=== PATIENT | female | born 1940 | race Caucasian/White ===

== ENCOUNTER 2018-09-14 08:21 | Inpatient (IN) | payer MEDICARE ==
[~2018-09-14] VITALS: Ht 165.1 cm; Wt 87.6 kg
--- NOTE | 2018-09-14 08:49 | NUR ---
PT SEEN AT AND PRESCRIBED DOXY, TESSALON, AND INH FOR POSS PNM. PT RPTS NO IMPROVEMENT AND FEELING OF HEART RACING INTERMITTANTLY. MARGARITO DUONG AT BEDSIDE, ASSESSMENT, POC DISCUSSED AND ORDERS REC'D.
[2018-09-14] MEDS ORDERED: ASPIRIN 81 MG TABLET CHEW PO ONE (09:00)
[2018-09-14] MEDS ORDERED: SODIUM CHLORIDE FLUSH 10ML SYR IVF ONE (09:00)
[2018-09-14] MEDS ORDERED: DILTIAZEM 5 MG/ML, 5ML IVPush STA (09:01)
[2018-09-14] MEDS ORDERED: DILTIAZEM 5 MG/ML, 5ML ONE (09:07)
[2018-09-14] MEDS: DILTIAZEM 125 MG in DEXTROSE 5% 100 ML IV SCH ×2 (09:18→19:38)
[2018-09-14] MEDS ORDERED: ASPIRIN 81 MG TABLET EC ONE (09:24)
[2018-09-14 09:27] LABS: BASOPHILS # (AUTO) 0.04 x10^3/uL (0-0.1); BASOPHILS % (AUTO) 1 % (0-1); EOSINOPHILS # (AUTO) 0.05 x10^3/uL (0-0.4); EOSINOPHILS % (AUTO) 1 % (1-7); LYMPHOCYTES # (AUTO) 1.08 x10^3/uL (1-3.4); LYMPHOCYTES % (AUTO) 13 % (22-44); MD NO; MEAN CORPUSCULAR HGB CONC 33.7 g/dL (32.4-35.8); MEAN CORPUSCULAR VOLUME 100.8 fL (80-100); MEAN PLATELET VOLUME 7.3 fL (7.4-10.4); MONOCYTES # (AUTO) 0.83 x10^3/uL (0.2-0.8); MONOCYTES % (AUTO) 10 % (2-9); NEUTROPHILS # (AUTO) 6.11 x10^3/uL (1.8-6.8); NEUTROPHILS % (AUTO) 75 % (42-75); PLATELET COUNT 357 x10^3/uL (130-400); RED BLOOD COUNT 4.56 x10^6/uL (3.82-5.3); RED CELL DISTRIBUTION WIDTH 13.8 % (9.6-15.2)
--- NOTE | 2018-09-14 09:27 | NUR ---
PT MED NOTED WITH DILTIZEM WITH EFFECT. DILT GTT STARTED AT 10MG/HR AND INFUSING W/O DIFFICULTY. CALL LIGHT W/I REACH, SPOUSE AT BEDSIDE.
[2018-09-14] MEDS ORDERED: DILTIAZEM 5 MG/ML, 5ML IVPush ONE (09:30)
--- NOTE | 2018-09-14 09:36 | NUR ---
PT OOB AND AMBULATED TO BATHROOM UPRIGHT STEADY GAIT. INCREASED SOB WITH ACTIVITY. PT RTD TO ROOM W/O INCIDENT. CALL LIGHT W/I REACH, VSS
[2018-09-14 09:40] LABS: RAPID INFLUENZA A Negative (Negative); RAPID INFLUENZA B Negative (Negative)
[2018-09-14 09:42] LABS: ALBUMIN 3.1 g/dL (3.4-5.0); ANION GAP 6 mmol/L (5-15); CALCIUM 8.7 mg/dL (8.5-10.1); CHLORIDE 104 mmol/L (98-107)
[2018-09-14 09:43] LABS: INTERNATIONAL NORMALIZED RATIO 1.09 (0.93-1.1); PROTHROMBIN TIME 11.5 Seconds (9.6-11.5)
[2018-09-14 09:48] LABS: CREATININE 0.54 mg/dL (0.55-1.02); TROPONIN I 0.033 ng/mL (0.000-0.045)
[2018-09-14] MEDS ORDERED: LOSARTAN PO (10:25)
[2018-09-14] MEDS: SODIUM CHLORIDE FLUSH 10ML SYR IVF SCH ×2 (10:30→20:08)
[2018-09-14] MEDS ORDERED: ONDANSETRON ODT 4 MG PO PRN (10:30)
[2018-09-14] MEDS ORDERED: GUAIFENESIN/DM 200-20MG, 10ML UDC PO PRN (10:30)
[2018-09-14] MEDS ORDERED: ONDANSETRON 2MG/ML, 2ML IVPush PRN (10:30)
[2018-09-14] MEDS ORDERED: DOCUSATE 100 MG CAPSULE PO PRN (10:30)
[2018-09-14] MEDS ORDERED: hydrALAzine 20 MG/ML, 1ML IVPush PRN (10:30)
--- NOTE | 2018-09-14 10:37 | NUR ---
PT OOB TO BSC WITH STANDBY ASSIST. RTD TO BED, CALL LIGHT W/I REACH
[2018-09-14 10:58] LABS: MICROSCOPIC NOT IND
[2018-09-14 11:08] LABS: CULTURE INDICATED? NO
[2018-09-14 11:11] LABS: CHOLESTEROL, TOTAL 129 mg/dL (140-239)
[2018-09-14 11:15] LABS: HDL CHOL % 33 % (28-40); HDL CHOLESTEROL (DIRECT) 43 mg/dL (40-60); LDL CHOLESTEROL,CALCULATED 73 mg/dL (54-169); LDL/HDL RATIO 1.7 (0.5-3.0); TRIGLYCERIDES 64 mg/dL (50-200); TROPONIN I 0.036 ng/mL (0.000-0.045); VLDL CHOLESTEROL 13 mg/dL (0-25)
[2018-09-14] MEDS ORDERED: HEPARIN 25,000 UNITS/500ML PMX 500 ML IV PRN (11:30)
[2018-09-14] MEDS ORDERED: APIXABAN 5 MG TABLET ONE (11:31)
[2018-09-14] MEDS: APIXABAN 5 MG TABLET PO SCH ×2 (11:42→20:06)
[2018-09-14 12:28] LABS: HEMOGLOBIN A1C 6.3 % (4.2-6.3)
[2018-09-14 12:35] VITALS: BP 145/86
[2018-09-14] MEDS ORDERED: FUROSEMIDE 20 MG/2 ML ONE (12:40)
[2018-09-14] MEDS ORDERED: FUROSEMIDE 20 MG/2 ML IV ONE (12:45)
[2018-09-14] MEDS: METOPROLOL TARTRATE 25 MG TABLET PO SCH ×2 (13:51→20:07)
[2018-09-14 17:06] LABS: TROPONIN I 0.042 ng/mL (0.000-0.045)
[2018-09-14] MEDS ORDERED: ALBUTEROL/IPRATROPIUM 2.5MG/0.5MG, 3 ML HHN SCH (17:30)
[2018-09-14 20:21] VITALS: BP 132/84
[2018-09-14] MEDS: ALBUTEROL/IPRATROPIUM 2.5MG/0.5MG, 3 ML HHN SCH (21:00)
[2018-09-14 23:08] LABS: TROPONIN I 0.038 ng/mL (0.000-0.045)
[2018-09-15 01:23] VITALS: BP 110/71
[2018-09-15] MEDS: ALBUTEROL/IPRATROPIUM 2.5MG/0.5MG, 3 ML HHN SCH ×4 (03:00→20:29)
[2018-09-15] MEDS: METOPROLOL TARTRATE 25 MG TABLET PO SCH ×3 (04:52→20:13)
[2018-09-15 05:38] LABS: BASOPHILS # (AUTO) 0.04 x10^3/uL (0-0.1); BASOPHILS % (AUTO) 1 % (0-1); EOSINOPHILS % (AUTO) 2 % (1-7); LYMPHOCYTES # (AUTO) 0.92 x10^3/uL (1-3.4); LYMPHOCYTES % (AUTO) 17 % (22-44); MD NO; MEAN CORPUSCULAR HEMOGLOBIN 33.6 pg (27.0-34.8); MEAN CORPUSCULAR HGB CONC 33.1 g/dL (32.4-35.8); MEAN CORPUSCULAR VOLUME 101.6 fL (80-100); MEAN PLATELET VOLUME 7.1 fL (7.4-10.4); MONOCYTES # (AUTO) 0.74 x10^3/uL (0.2-0.8); MONOCYTES % (AUTO) 13 % (2-9); NEUTROPHILS # (AUTO) 3.77 x10^3/uL (1.8-6.8); NEUTROPHILS % (AUTO) 68 % (42-75); PLATELET COUNT 304 x10^3/uL (130-400); RED BLOOD COUNT 4.21 x10^6/uL (3.82-5.3); RED CELL DISTRIBUTION WIDTH 13.9 % (9.6-15.2)
[2018-09-15 05:39] LABS: ALBUMIN 2.7 g/dL (3.4-5.0); ANION GAP 5 mmol/L (5-15); CALCIUM 8.4 mg/dL (8.5-10.1); CHLORIDE 104 mmol/L (98-107)
[2018-09-15 05:43] LABS: TROPONIN I 0.028 ng/mL (0.000-0.045)
[2018-09-15] MEDS: DILTIAZEM 125 MG in DEXTROSE 5% 100 ML IV SCH (06:06)
[2018-09-15] MEDS: SODIUM CHLORIDE FLUSH 10ML SYR IVF SCH ×2 (07:49→20:13)
[2018-09-15] MEDS: APIXABAN 5 MG TABLET PO SCH ×2 (07:49→20:13)
[2018-09-15 08:00] VITALS: BP 138/85
[2018-09-15 15:02] VITALS: BP 136/78
[2018-09-15 19:43] VITALS: BP 148/88
[2018-09-16 00:56] VITALS: BP 126/94
[2018-09-16] MEDS ORDERED: DIGOXIN 0.25 MG/ML, 2ML IVPush ONE (01:30)
[2018-09-16] MEDS: ALBUTEROL/IPRATROPIUM 2.5MG/0.5MG, 3 ML HHN SCH ×3 (02:36→13:51)
[2018-09-16] MEDS: METOPROLOL TARTRATE 25 MG TABLET PO SCH ×2 (02:58→11:32)
[2018-09-16] MEDS ORDERED: REGADENOSON 0.4 MG/5 ML SYRINGE ONE (08:24)
[2018-09-16 08:28] VITALS: BP 135/105
[2018-09-16] MEDS: SODIUM CHLORIDE FLUSH 10ML SYR IVF SCH (09:00)
[2018-09-16] MEDS: APIXABAN 5 MG TABLET PO SCH (11:31)
[2018-09-16 13:39] VITALS: BP 150/81
[2018-09-16] MEDS ORDERED: ALBU18HF INH (16:09)
[2018-09-16] MEDS ORDERED: TIOT18CA INH (16:09)
[2018-09-16] MEDS ORDERED: APIX5TAB PO (16:09)
[2018-09-16] MEDS ORDERED: METO25TA35 PO (16:09)
[2018-09-16] MEDS ORDERED: DOCU-131 PO (16:09)
== END 2018-09-16 17:48 | disposition home or self-care (01) | DRG 291 ==
LOC: ED 08:48 → EDIP 10:23 → 5SO 12:07
PROVIDERS: ADMIT Internal Medicine; ATTEND Internal Medicine
DX: I11.0 Hypertensive heart disease with heart failure (principal); J96.20 Acute and chronic respiratory failure, unspecified whether with hypoxia or hypercapnia; D68.69 Other thrombophilia; I31.3 Pericardial effusion (noninflammatory); I50.33 Acute on chronic diastolic (congestive) heart failure; I48.91 Unspecified atrial fibrillation; Z88.8 Allergy status to other drugs, medicaments and biological substances; E55.9 Vitamin D deficiency, unspecified; E78.00 Pure hypercholesterolemia, unspecified; E78.5 Hyperlipidemia, unspecified; I07.1 Rheumatic tricuspid insufficiency; J44.9 Chronic obstructive pulmonary disease, unspecified; Z87.891 Personal history of nicotine dependence
CPT/HCPCS: 36415; 71045; 78452; 80048; 80061; 81003; 82040; 83036; 83605; 83735; 83880; 84439; 84443; 84484; 85025; 85610; 87400; 93005; 93017; 93306; 94640; 94664; 96374; 99291; G0378; J2785; J7620; A9502; C9898; J1160; J1940

== ENCOUNTER 2018-10-29 10:08 | Day surgery (SDC) | payer MEDICARE ==
[~2018-10-29] VITALS: Ht 165.1 cm; Wt 76.3 kg
[~2018-10-29 10:08] MED LIST: ALBU18HF INH; APIX5TAB PO; DOCU-131 PO; LOSARTAN PO; METO25TA35 PO; TIOT18CA INH
[2018-10-29 10:59] VITALS: BP 161/106
[2018-10-29] MEDS ORDERED: [UNRECOGNIZED DRUG - CODE] PO (11:14)
[2018-10-29] MEDS ORDERED: CHOL100011 PO (11:14)
[2018-10-29] MEDS ORDERED: CALC-545 PO (11:14)
[2018-10-29] MEDS ORDERED: METO25TA91 PO (11:14)
[2018-10-29] MEDS ORDERED: CYAN50TA PO (11:14)
[2018-10-29] MEDS ORDERED: FURO20TA3 PO (11:14)
[2018-10-29] MEDS ORDERED: DILT120C2 PO (11:14)
[2018-10-29] MEDS ORDERED: LOSA25TA25 PO (11:14)
[2018-10-29 11:24] LABS: INTERNATIONAL NORMALIZED RATIO 1.19 (0.93-1.1); PROTHROMBIN TIME 12.4 Seconds (9.6-11.5)
[2018-10-29 11:36] LABS: ANION GAP 4 mmol/L (5-15); CALCIUM 8.2 mg/dL (8.5-10.1); CHLORIDE 104 mmol/L (98-107)
[2018-10-29 11:37] LABS: CREATININE 0.49 mg/dL (0.55-1.02)
[2018-10-29] MEDS ORDERED: ACETAMINOPHEN 325 MG TABLET ONE (12:16)
[2018-10-29] MEDS ORDERED: LORazepam 0.5MG TABLET PO PRN (12:30)
[2018-10-29] MEDS ORDERED: ACETAMINOPHEN 325 MG TABLET PO ONE (12:30)
[2018-10-29] MEDS ORDERED: PROPOFOL 10 MG/ML, 20ML ONE (13:58)
== END 2018-10-29 15:54 | disposition home or self-care (01) ==
LOC: CACL 10:08
PROVIDERS: ATTEND Internal Medicine Cardiovascular Disease
DX: I48.91 Unspecified atrial fibrillation (principal); F17.210 Nicotine dependence, cigarettes, uncomplicated; J44.9 Chronic obstructive pulmonary disease, unspecified; I11.0 Hypertensive heart disease with heart failure; I50.33 Acute on chronic diastolic (congestive) heart failure; I50.84 End stage heart failure; Z79.01 Long term (current) use of anticoagulants; Z88.6 Allergy status to analgesic agent; Z88.1 Allergy status to other antibiotic agents; Z88.8 Allergy status to other drugs, medicaments and biological substances
CPT/HCPCS: 36415; 80048; 85610; 92960; 93005; J2704

== ENCOUNTER 2018-11-30 09:54 | Day surgery (SDC) | payer MEDICARE ==
[~2018-11-30] VITALS: Ht 165.1 cm; Wt 80.5 kg
[~2018-11-30 09:54] MED LIST changes: +CALC-545 PO; +CHOL100011 PO; +CYAN50TA PO; +DILT120C2 PO; +FURO20TA3 PO; +LOSA25TA25 PO; +METO25TA91 PO; +[UNRECOGNIZED DRUG - CODE] PO
[2018-11-30 10:36] VITALS: BP 150/107
[2018-11-30] MEDS ORDERED: DRON400T PO (10:48)
[2018-11-30 11:06] LABS: ANION GAP 5 mmol/L (5-15); CALCIUM 8.3 mg/dL (8.5-10.1); CHLORIDE 102 mmol/L (98-107); CREATININE 0.62 mg/dL (0.55-1.02)
[2018-11-30] MEDS ORDERED: PROPOFOL 10 MG/ML, 20ML ONE (11:12)
[2018-11-30] MEDS ORDERED: ALBUTEROL SULFATE 2.5 MG/3 ML NPPB PRN (11:30)
== END 2018-11-30 12:21 | disposition home or self-care (01) ==
LOC: CACL 09:54
PROVIDERS: ATTEND Internal Medicine Cardiovascular Disease
DX: I48.91 Unspecified atrial fibrillation (principal); J44.9 Chronic obstructive pulmonary disease, unspecified; F17.210 Nicotine dependence, cigarettes, uncomplicated; I11.0 Hypertensive heart disease with heart failure; I50.33 Acute on chronic diastolic (congestive) heart failure; Z79.01 Long term (current) use of anticoagulants
CPT/HCPCS: 36415; 80048; 92960; 93005; 94640; J2704; J7613

== ENCOUNTER 2020-02-23 21:08 | Emergency (ER) | payer MEDICARE ==
[~2020-02-23] VITALS: Ht 162.6 cm; Wt 86.9 kg
[~2020-02-23 21:08] MED LIST changes: +AMIO200T42 PO; +DILT180C59 PO; +DRON400T PO; +FURO40TA6 PO; +SPIR25TA PO; +VALS320T15 PO
[2020-02-23] MEDS ORDERED: LIDOCAINE 1%-EPI 1:100K, 20ML ONE (21:12)
[2020-02-23] MEDS ORDERED: LIDOCAINE-MPF 1%, 5ML ONE (21:13)
[2020-02-23 21:19] VITALS: BP 143/77
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
[2020-02-23] MEDS ORDERED: DIPH,PERTUSS(ACELL),TET VAC/PF 0.5 ML IM-VACC ONE ×2 (21:30)
--- NOTE | 2020-02-23 21:46 | NUR ---
PT'S WOUND CLEAN PER DR'S ORDERS BY NAYAN Sears
[2020-02-23] MEDS ORDERED: NEOSPORIN OINT. PKT 1 PACKET ONE (22:20)
== END 2020-02-23 22:34 ==
LOC: ED 22:22
DX: S91.312A Laceration without foreign body, left foot, initial encounter (principal); F17.210 Nicotine dependence, cigarettes, uncomplicated; X58.XXXA Exposure to other specified factors, initial encounter; Y93.89 Activity, other specified; Y92.009 Unspecified place in unspecified non-institutional (private) residence as the place of occurrence of the external cause; Y99.8 Other external cause status
CPT/HCPCS: 12041; 90471; 90715; 99284; 99406

== ENCOUNTER → 2020-08-21 | Outpatient (CLI) | payer MEDICARE ==
[~2020-08-21] MED LIST changes: -CALC-545 PO; +CALC-780 PO; +REGADENOSON 0.4 MG/5 ML SYRINGE ONE
== END | disposition home or self-care (01) ==
LOC: CFH 07:33
PROVIDERS: ATTEND Internal Medicine Cardiovascular Disease
DX: I08.3 Combined rheumatic disorders of mitral, aortic and tricuspid valves (principal); I11.0 Hypertensive heart disease with heart failure; I50.32 Chronic diastolic (congestive) heart failure; I48.0 Paroxysmal atrial fibrillation
CPT/HCPCS: 78452; 93017; 93306; A9502; J2785

== ENCOUNTER → 2020-11-13 | Outpatient (CLI) | payer MEDICARE ==
[~2020-11-13] MED LIST changes: -REGADENOSON 0.4 MG/5 ML SYRINGE ONE
== END | disposition home or self-care (01) ==
LOC: CFH 08:54
PROVIDERS: ATTEND Physician Assistant Medical
DX: R91.8 Other nonspecific abnormal finding of lung field (principal); J98.4 Other disorders of lung; F17.210 Nicotine dependence, cigarettes, uncomplicated
CPT/HCPCS: 71250

== ENCOUNTER → 2020-12-07 | Outpatient (CLI) | payer MEDICARE ==
[~2020-12-07] MED LIST changes: -DRON400T PO; +DRON400T6 PO
== END | disposition home or self-care (01) ==
LOC: CFH 07:45
PROVIDERS: ATTEND Internal Medicine
DX: R91.8 Other nonspecific abnormal finding of lung field (principal); J98.11 Atelectasis; I51.7 Cardiomegaly; I34.8 Other nonrheumatic mitral valve disorders; J43.9 Emphysema, unspecified
CPT/HCPCS: 71250

== ENCOUNTER → 2020-12-17 | Outpatient (CLI) | payer MEDICARE ==
[~2020-12-17] MED LIST changes: +ALBU8.5H8 INH; +CALC600T60 PO; +METO-93 PO; +SPIR25TA5 PO
[2020-12-17 13:03] LABS: ALBUMIN 3.4 g/dL (3.4-5.0); ANION GAP 3 mmol/L (5-15); CALCIUM 8.5 mg/dL (8.5-10.1); CHLORIDE 101 mmol/L (98-107)
[2020-12-17 13:06] LABS: ALANINE AMINOTRANSFERASE 24 U/L (12-78); ALKALINE PHOSPHATASE 78 U/L (45-117); BILIRUBIN,TOTAL 0.4 mg/dL (0.2-1.0); CREATININE 0.68 mg/dL (0.55-1.02); TOTAL PROTEIN 7.4 g/dL (6.4-8.2)
== END | disposition home or self-care (01) ==
LOC: STAR 10:58
PROVIDERS: ATTEND Internal Medicine
DX: Z01.812 Encounter for preprocedural laboratory examination (principal); Z20.822 Contact with and (suspected) exposure to COVID-19; R91.8 Other nonspecific abnormal finding of lung field; I51.7 Cardiomegaly
CPT/HCPCS: 36415; 80053; 93005; U0003

== ENCOUNTER 2020-12-21 07:28 | Day surgery (SDC) | payer MEDICARE ==
[~2020-12-21] VITALS: Ht 165.1 cm; Wt 80.0 kg
[2020-12-21] MEDS ORDERED: CHLORHEXIDINE 15 ML UDC PO ONE (08:00)
[2020-12-21] MEDS ORDERED: LACTATED RINGERS 1,000 ML IV SCH (08:00)
[2020-12-21 08:12] VITALS: BP 144/79
[2020-12-21] MEDS ORDERED: FENTANYL PF 250 MCG/5ML ONE (09:31)
[2020-12-21] MEDS ORDERED: PROPOFOL 50 ML ONE ×2 (09:31→10:48)
[2020-12-21] MEDS ORDERED: ALBUTEROL/IPRATROPIUM 2.5MG/0.5MG, 3 ML NPPB PRN (10:00)
[2020-12-21] MEDS ORDERED: PROMETHAZINE 25 MG/ML, 1ML IVPush PRN (10:00)
[2020-12-21] MEDS ORDERED: HYDROmorphone 1 MG/ML, 1ML INJ IVPush PRN (10:00)
[2020-12-21] MEDS ORDERED: EPHEDRINE 50 MG/ML, 1ML IM PRN (10:00)
[2020-12-21] MEDS ORDERED: DIAZEPAM 5 MG/ML, 2ML IVPush PRN (10:00)
[2020-12-21] MEDS ORDERED: FENTANYL PF 100 MCG/2ML IV PRN (10:00)
[2020-12-21] MEDS ORDERED: EPHEDRINE 50 MG/ML, 1ML IVPush PRN (10:00)
[2020-12-21] MEDS ORDERED: DIPHENHYDRAMINE 50 MG/ML, 1ML IVPush PRN (10:00)
[2020-12-21] MEDS ORDERED: ONDANSETRON 2MG/ML, 2ML IVPush PRN (10:00)
[2020-12-21] MEDS ORDERED: MEPERIDINE/PF 25MG/0.5ML IVPush PRN (10:00)
[2020-12-21] MEDS ORDERED: LABETALOL 5MG/ML, 20ML IV PRN (10:00)
[2020-12-21] MEDS ORDERED: EPHEDRINE 50 MG/ML, 1ML ONE (10:44)
[2020-12-21] MEDS ORDERED: ROCURONIUM 10MG/ML,5ML ONE (10:44)
[2020-12-21] MEDS ORDERED: GLYCOPYRROLATE 0.2MG/1ML, 5ML ONE (10:44)
[2020-12-21] MEDS ORDERED: NEOSTIGMINE 1 MG/ML, 10ML ONE (10:44)
[2020-12-21] MEDS ORDERED: SUCCINYLCHOLINE 20 MG/ML, 10ML ONE (10:44)
[2020-12-21] MEDS ORDERED: DEXAMETHASONE 4 MG/ML, 5ML ONE (10:44)
[2020-12-21] MEDS ORDERED: ONDANSETRON 2MG/ML, 2ML ONE ×2 (10:53)
[2020-12-21] MEDS ORDERED: NALOXONE 0.4 MG/ML, 1ML ONE (11:27)
[2020-12-21] MEDS ORDERED: FUROSEMIDE 20 MG/2 ML IV ONE (12:30)
[2020-12-21] MEDS ORDERED: NALOXONE 0.4 MG/ML, 1ML IVPush ONE (12:30)
[2020-12-21] MEDS ORDERED: FUROSEMIDE 20 MG/2 ML ONE (13:03)
== END 2020-12-21 14:35 | disposition home or self-care (01) ==
LOC: OUT 07:28
PROVIDERS: ATTEND Internal Medicine
DX: R91.8 Other nonspecific abnormal finding of lung field (principal); R59.1 Generalized enlarged lymph nodes; C77.1 Secondary and unspecified malignant neoplasm of intrathoracic lymph nodes; J44.9 Chronic obstructive pulmonary disease, unspecified; I11.0 Hypertensive heart disease with heart failure; I50.32 Chronic diastolic (congestive) heart failure; I48.0 Paroxysmal atrial fibrillation; F17.210 Nicotine dependence, cigarettes, uncomplicated; Z79.01 Long term (current) use of anticoagulants; Z79.899 Other long term (current) drug therapy; Z88.5 Allergy status to narcotic agent; Z88.8 Allergy status to other drugs, medicaments and biological substances; Z90.49 Acquired absence of other specified parts of digestive tract; Z99.81 Dependence on supplemental oxygen
CPT/HCPCS: 31653; 71045; 88172; 88173; 88177; 88305; 88341; 88342; J0330; J1100; J1940; J2310; J2405; J2704; J2710; J3010; J7120; 31622

== ENCOUNTER → 2021-01-01 | Outpatient (CLI) | payer MEDICARE | END | disposition home or self-care (01) | LOC: PETCFH 07:30 | PROVIDERS: ATTEND Internal Medicine | DX: C34.11 Malignant neoplasm of upper lobe, right bronchus or lung (principal); R91.8 Other nonspecific abnormal finding of lung field | CPT/HCPCS: 78815; A9552 ==

== ENCOUNTER → 2021-01-08 | Outpatient (CLI) | payer MEDICARE | END | disposition home or self-care (01) | LOC: ROC 07:23 | PROVIDERS: ATTEND Radiology Radiation Oncology | DX: C34.11 Malignant neoplasm of upper lobe, right bronchus or lung (principal); I11.0 Hypertensive heart disease with heart failure; I50.32 Chronic diastolic (congestive) heart failure; I48.0 Paroxysmal atrial fibrillation; J43.9 Emphysema, unspecified; Z79.01 Long term (current) use of anticoagulants; Z87.891 Personal history of nicotine dependence; Z99.81 Dependence on supplemental oxygen; Z79.899 Other long term (current) drug therapy | CPT/HCPCS: G0463 ==

== ENCOUNTER → 2021-01-22 | Outpatient (CLI) | payer MEDICARE ==
[~2021-01-22] MED LIST changes: +OMNIPAQUE 350 MG/ML, 100ML BOTTLE ONE
== END | disposition home or self-care (01) ==
LOC: CFH 15:03
PROVIDERS: ATTEND Radiology Radiation Oncology
DX: C79.51 Secondary malignant neoplasm of bone (principal); C34.11 Malignant neoplasm of upper lobe, right bronchus or lung; M47.812 Spondylosis without myelopathy or radiculopathy, cervical region
CPT/HCPCS: 70491; Q9967

== ENCOUNTER 2021-03-08 11:38 | Emergency (ER) | payer MEDICARE ==
[~2021-03-08] VITALS: Ht 165.1 cm; Wt 80.0 kg
[~2021-03-08 11:38] MED LIST changes: -OMNIPAQUE 350 MG/ML, 100ML BOTTLE ONE
[2021-03-08 11:46] VITALS: BP 136/50
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
--- NOTE | 2021-03-08 12:44 | NUR ---
PATIENT DOES NOT WANT TO WAIT TO BE SEEN, STATES "I WILL COME BACK LATER." PATIENT A&O X4, SIGNED AMA FORM, WHEELED OUT TO FRIENDS PRIVATE VEHICLE.
== END 2021-03-08 12:45 | disposition left against medical advice (07) ==
LOC: ED 12:00
DX: M54.2 Cervicalgia (principal); Z53.21 Procedure and treatment not carried out due to patient leaving prior to being seen by health care provider

== ENCOUNTER 2021-03-11 09:01 | Observation (INO) | payer MEDICARE ==
[~2021-03-11] VITALS: Ht 165.1 cm; Wt 81.8 kg
[2021-03-11] MEDS ORDERED: MORPHINE SULFATE 4 MG/ML, 1ML ONE (10:20)
[2021-03-11] MEDS ORDERED: TRAM50TA2 PO (10:28)
[2021-03-11] MEDS ORDERED: MORPHINE SULFATE 4 MG/ML, 1ML IVPush PRN (10:30)
[2021-03-11] MEDS ORDERED: SODIUM CHLORIDE FLUSH 10ML SYR IVF ONE (10:30)
--- NOTE | 2021-03-11 10:38 | NUR ---
dr wood spoke with dr gomes
[2021-03-11 10:56] LABS: BASOPHILS % (AUTO) 2 % (0-1); EOSINOPHILS % (AUTO) 2 % (1-7); LYMPHOCYTES % (AUTO) 10 % (22-44); MEAN CORPUSCULAR HEMOGLOBIN 22.2 pg (27.0-34.8); MEAN PLATELET VOLUME 6.6 fL (7.4-10.4); MONOCYTES % (AUTO) 13 % (2-9); NEUTROPHILS % (AUTO) 74 % (42-75); PLATELET COUNT 299 x10^3/uL (130-400); RED BLOOD COUNT 4.18 x10^6/uL (3.82-5.3); RED CELL DISTRIBUTION WIDTH 22.7 % (9.6-15.2)
[2021-03-11 10:57] LABS: ALANINE AMINOTRANSFERASE 19 U/L (12-78); ALBUMIN 3.2 g/dL (3.4-5.0); CALCIUM 9.3 mg/dL (8.5-10.1); CREATININE 0.92 mg/dL (0.55-1.02)
[2021-03-11 10:59] LABS: ALKALINE PHOSPHATASE 101 U/L (45-117); BILIRUBIN,TOTAL 0.2 mg/dL (0.2-1.0); TOTAL PROTEIN 7.7 g/dL (6.4-8.2)
[2021-03-11 11:10] LABS: CHLORIDE 101 mmol/L (98-107)
[2021-03-11 11:11] LABS: ANION GAP 3 mmol/L (5-15)
[2021-03-11 11:16] LABS: MEAN CORPUSCULAR HGB CONC 29.6 g/dL (32.4-35.8)
[2021-03-11 11:17] LABS: <PLATELET ESTIMATE> ADEQUATE; ANISOCYTOSIS 1+; HYPOCHROMIA 2+; MICROCYTOSIS 1+; POLYCHROMASIA 1+; SMALL PLATELETS 1+
[2021-03-11] MEDS ORDERED: OMNIPAQUE 350 MG/ML, 100ML BOTTLE ONE (12:20)
--- NOTE | 2021-03-11 13:38 | NUR ---
dr wood spoke with dr monk
--- NOTE | 2021-03-11 13:48 | NUR ---
PT REFUSES TO USE A BEDPAN/COMMODE. PT AMBULATED TO RESTROOM.
--- NOTE | 2021-03-11 14:16 | NUR ---
TASK RN NOTE: UPON ENTRY TO ROOM PT ON O2 TANK ON BED. NC MOVED TO WALL. PER DAUGHTER SPO2 "DIFFICULT TO READ" DUE TO CIRCULATION AND MOVEMENT. NAD NOTED IN PT AT THIS TIME. KNEES ELEVATED FOR PT COMFORT. AND DAUGHTER AT BEDSIDE. ADDITIONAL CHAIRS BROUGHT IN FOR FAMILY.
[2021-03-11] MEDS ORDERED: ALBUTEROL HFA 90 MCG/SPRAY INH PRN (15:00)
[2021-03-11] MEDS ORDERED: FENTANYL PF 100 MCG/2ML IV ONE (15:00)
[2021-03-11] MEDS ORDERED: ACETAMINOPHEN 325 MG TABLET PO PRN (16:00)
[2021-03-11] MEDS ORDERED: ONDANSETRON 4 MG TABLET PO PRN (16:00)
[2021-03-11] MEDS ORDERED: FENTANYL PF 100 MCG/2ML IVPush PRN (16:30)
[2021-03-11 16:49] VITALS: BP 145/81
[2021-03-11] MEDS ORDERED: FUROSEMIDE 40 MG TABLET PO SCH (17:00)
[2021-03-11] MEDS ORDERED: FENTANYL 25 MCG PATCH TD SCH (18:00)
[2021-03-11] MEDS ORDERED: NICOTINE 14MG/24 HR PATCH.TD24 TD SCH (18:00)
[2021-03-11] MEDS ORDERED: morphine SULFATE ORAL.CONC 20 MG/ML BC PRN (18:00)
[2021-03-11 19:12] VITALS: BP 113/72
[2021-03-11] MEDS ORDERED: APIXABAN 5 MG TABLET PO SCH (21:00)
[2021-03-11] MEDS: DOXYCYCLINE 100MG TABLET PO SCH (21:40)
[2021-03-12 00:28] VITALS: BP 113/64
[2021-03-12] MEDS ORDERED: FENTANYL 25 MCG PATCH TD SCH (00:30)
[2021-03-12] MEDS ORDERED: DIPHENHYDRAMINE 50 MG/ML, 1ML IVPush ONE (02:50)
[2021-03-12 07:22] VITALS: BP 90/49
[2021-03-12 07:49] VITALS: BP 122/67
[2021-03-12] MEDS: DOXYCYCLINE 100MG TABLET PO SCH (08:44)
[2021-03-12] MEDS ORDERED: VALSARTAN 320 MG TABLET PO SCH (09:00)
[2021-03-12] MEDS ORDERED: AMIODARONE 200 MG TABLET PO SCH (09:00)
[2021-03-12] MEDS ORDERED: SPIRONOLACTONE 25 MG TABLET PO SCH (09:00)
[2021-03-12] MEDS ORDERED: DOCUSATE 100 MG CAPSULE PO SCH ×2 (09:00→09:15)
[2021-03-12] MEDS ORDERED: METOPROLOL SUCCINATE 50 MG TAB.ER.24H PO SCH (09:00)
[2021-03-12] MEDS ORDERED: DOXY100T PO (11:49)
[2021-03-12] MEDS ORDERED: FENT1PAT75 TD (11:49)
[2021-03-12] MEDS ORDERED: MORP100S3 BC ×2 (11:49)
[2021-03-12] MEDS ORDERED: MORP20SO PO (12:24)
[2021-03-12 13:36] VITALS: BP 118/57
== END 2021-03-12 16:48 | disposition home or self-care (01) ==
LOC: ED 09:38 → INTOOBSV 13:56 → EDIP 13:56 → SUATTDRO 14:31 → 3N 15:00
PROVIDERS: ADMIT Internal Medicine; ATTEND Internal Medicine
DX: G89.3 Neoplasm related pain (acute) (chronic) (principal); C34.92 Malignant neoplasm of unspecified part of left bronchus or lung; C79.51 Secondary malignant neoplasm of bone; I48.20 Chronic atrial fibrillation, unspecified; J44.9 Chronic obstructive pulmonary disease, unspecified; M84.48XA Pathological fracture, other site, initial encounter for fracture; L03.115 Cellulitis of right lower limb; I50.9 Heart failure, unspecified; J96.11 Chronic respiratory failure with hypoxia; M48.02 Spinal stenosis, cervical region; K52.1 Toxic gastroenteritis and colitis; F17.210 Nicotine dependence, cigarettes, uncomplicated; T36.95XA Adverse effect of unspecified systemic antibiotic, initial encounter; Z79.01 Long term (current) use of anticoagulants; Z88.0 Allergy status to penicillin; Z66 Do not resuscitate; Z51.5 Encounter for palliative care; Z99.81 Dependence on supplemental oxygen; Z79.899 Other long term (current) drug therapy
CPT/HCPCS: 36415; 70491; 72125; 80053; 84145; 85025; 93005; 96374; 96375; 99285; G0378; J2270; J3010; Q9967